=== PATIENT | male | born 1980 | race African-American/Black ===

== ENCOUNTER 2019-06-19 18:18 | Emergency (ER) | payer SELFPAY ==
[2019-06-19] MEDS: NORMAL SALINE 1000 ML 1,000 ML IV PRN ×2 (18:27→19:19)
[2019-06-19] MEDS ORDERED: NALOXONE HCL INJ 2 MG/2 ML DISP.SYRIN ONE ×3 (19:07→19:12)
[2019-06-19 19:08] LABS: ARTERIAL BLOOD BASE EXCESS -15.6 mmol/L; ARTERIAL BLOOD HCO3 18.1 mmol/L (20-24); ARTERIAL BLOOD O2 SATURATION 99.2 % (94-98); ARTERIAL BLOOD PO2 285.5 mmHg (80-100); ARTERIAL BLOOD TOTAL CO2 20.7 mmol/L (23-27)
[2019-06-19 19:09] LABS: ARTERIAL BLOOD FIO2 50%
[2019-06-19 19:12] LABS: ARTERIAL BLOOD PH 6.94 (7.35-7.45)
[2019-06-19 19:13] LABS: ARTERIAL BLOOD PCO2 86.4 mmHg (35-45)
[2019-06-19] MEDS ORDERED: NOREPINEPHRINE BITARTRATE INJ/PF 4 MG/4 ML SDV IV ONE (19:13)
[2019-06-19 19:16] LABS: INTERNATIONAL RATION (INR) 2.37; PROTHROMBIN TIME 26.3 SEC (11.4-15.4)
[2019-06-19 19:17] LABS: HEMATOCRIT 40.3 % (37.9-51.0); HEMOGLOBIN 12.6 g/dL (13.5-17.0); MEAN CORPUSCULAR HEMOGLOBIN 31.2 pg (27.0-33.4); MEAN CORPUSCULAR HGB CONC 31.4 g/dL (32.0-36.0); MEAN CORPUSCULAR VOLUME 99 fl (80-97); RED BLOOD COUNT 4.05 10^6/uL (4.35-5.55); RED CELL DISTRIBUTION WIDTH 14.2 % (11.5-14.0); WHITE BLOOD COUNT 19.7 10^3/uL (4.0-10.5)
[2019-06-19] MEDS ORDERED: DEXTROSE 5%-WATER 250 ML with NOREPINEPHRINE BITARTRATE 4 MG IV PRN ×2 (19:27)
[2019-06-19 19:35] LABS: ALBUMIN 3.5 g/dL (3.5-5.0); ALKALINE PHOSPHATASE 132 U/L (38-126); ANION GAP 19 (5-19); BILIRUBIN,DIRECT 0.3 mg/dL (0.0-0.4); BILIRUBIN,TOTAL 0.6 mg/dL (0.2-1.3); BLOOD UREA NITROGEN 18 mg/dL (7-20); CALCIUM 8.3 mg/dL (8.4-10.2); CARBON DIOXIDE 23 mmol/L (22-30); CHLORIDE 103 mmol/L (98-107); GLUCOSE 111 mg/dL (75-110); POTASSIUM 3.5 mmol/L (3.6-5.0)
[2019-06-19 19:44] LABS: PLATELET COUNT 72 10^3/uL (150-450)
[2019-06-19 19:48] LABS: ABSOLUTE MONOCYTES # (MANUAL) 1.2 10^3/uL (0.1-1.4); BAND NEUTROPHILS % (MANUAL) 10 % (3-5); BASOPHILS % (MANUAL) 0 % (0-2); EOSINOPHILS % (MANUAL) 0 % (0-6); LYMPHOCYTES % (MANUAL) 5 % (13-45); MONOCYTES % (MANUAL) 6 % (3-13); NUCLEATED RED BLOOD CELLS 1 /100 WBC (0); SEGMENTED NEUTROPHILS % (MAN) 79 % (42-78); TOTAL CELLS COUNTED 100
[2019-06-19 19:49] LABS: ANISOCYTOSIS SLIGHT; PLATELET COMMENT DECREASED
--- NOTE | 2019-06-19 19:55 | RADIOLOGY REPORT (SQ) ---
EXAM DESCRIPTION: CHEST SINGLE VIEW COMPLETED DATE/TIME: 06/19/2019 7:30 pm REASON FOR STUDY: ETT placement COMPARISON: None. EXAM PARAMETERS: NUMBER OF VIEWS: One view. TECHNIQUE: Single frontal radiographic view of the chest acquired. RADIATION DOSE: NA LIMITATIONS: None. FINDINGS: LUNGS AND PLEURA: No pneumothorax. Right basilar airspace disease. No pleural effusion. MEDIASTINUM AND HILAR STRUCTURES: No masses. Contour normal. HEART AND VASCULAR STRUCTURES: Heart normal in size. Normal vasculature. BONES: No acute findings. HARDWARE: Endotracheal tube tip overlies the mid trachea approximately 5 cm above the level of the ca yee. Nasogastric catheter tip overlies the body of the stomach. OTHER: No other significant finding. IMPRESSION: Right basilar airspace disease.Endotracheal tube tip overlies the mid trachea approximat mireya 5 cm above the level of the riya. Nasogastric catheter tip overlies the body of the stomach. TECHNICAL DOCUMENTATION: JOB ID: [id number] [id number] 2010 [email or web address]- All Rights Reserved Reading location - IP/workstation name: [email or web address]
[2019-06-19 20:06] LABS: ACETAMINOPHEN < 10 ug/mL (10-30); ALCOHOL < 10 mg/dL (NONE DETECTED); ASPARTATE AMINO TRANSFERASE 3175 U/L (17-59); SALICYLATE < 1.0 mg/dL (2.0-20.0)
[2019-06-19 20:15] LABS: FREE T3 5.53 pg/mL (2.77-5.27); FREE T4 (FREE THYROXINE) 0.88 ng/dL (0.78-2.19)
[2019-06-19] MEDS ORDERED: NALOXONE HCL INJ 2 MG/2 ML DISP.SYRIN IV ONE ×2 (20:17→20:18)
[2019-06-19 20:26] LABS: ARTERIAL BLOOD BASE EXCESS -13.9 mmol/L; ARTERIAL BLOOD H2CO3 1.57 mmol/L (1.05-1.35); ARTERIAL BLOOD HCO3 15.8 mmol/L (20-24); ARTERIAL BLOOD O2 SATURATION 98.6 % (94-98); ARTERIAL BLOOD PCO2 52.3 mmHg (35-45); ARTERIAL BLOOD PO2 172.4 mmHg (80-100); ARTERIAL BLOOD TOTAL CO2 17.4 mmol/L (23-27)
[2019-06-19 20:28] LABS: ARTERIAL BLOOD FIO2 40
[2019-06-19 20:29] LABS: THYROID STIMULATING HORMONE 1.08 uIU/mL (0.47-4.68)
--- NOTE | 2019-06-19 20:47 | RADIOLOGY REPORT (SQ) ---
EXAM DESCRIPTION: CT HEAD WITHOUT IV CONTRAST COMPLETED DATE/TME: 06/19/2019 18:54 CLINICAL HISTORY: 39 years, Male, seizures, unresponsive COMPARISON: None. TECHNIQUE: Noncontrast CT of the head was performed. Coronal and sagittal reformations were created. Images stored on PACS. All CT scanners at this facility use dose modulation, iterative reconstruction, and/or weight based dosing when appropriate to reduce radiation dose to as low as reasonably achievable (ALARA). [facility]: Dose Right [facility]: CareDose [facility]: Dose Right [facility]: Teradose 4D [facility]: [employer] LIMITATIONS: None. FINDINGS: Visualized is hyperdensity interdigitate the sulcal spaces of the bilateral cerebellar hemispheres as well as enveloping the cerebellar vermis and bilateral cerebellar pontine angles. This also appears to undermine the bilateral tentorial leaflets. Likewise, the bilateral cerebellar hemispheres appear diffusely hypodense. There is associated mass effect upon the fourth ventricle with slight descent of the cerebellar tonsils into the foramen magnum where there is crowding of the cerebellar tonsils/posterior aspect of the medulla. In addition, there is focal hypodensity about the bilateral globus pallidi. Cerebral ventricles and sulcal spaces appear normal in size and configuration. Globes and orbits show no acute abnormality. Mild opacity is noted about the right maxillary antrum with additional mild opacity in the ethmoidal air cells. A few scattered foci of gas density are noted about the soft tissues overlying the left temporalis muscle and the left tube draw helper space, presumably iatrogenic. No depressed skull fractures. IMPRESSION: Scattered hyperdensity interdigitate the sulcal spaces of the bilateral cerebellar hemispheres, suspicious for subarachnoid hemorrhage with additional diffuse hypodensity about the bilateral cerebellar hemispheres, raising the possibility of bilateral cerebellar hemispheric infarction. This could be confirmed with MR. Likewise, the cerebellar tonsils appear to descend into the foramen magnum where there is crowding, presumably acute. Additional hypodensity about the bilateral globus pallidus, a finding which is generally nonspecific though could be related to anoxic hypoxic injury or other toxic/metabolic insult. THIS REPORT CONTAINS FINDINGS THAT MAY BE CRITICAL TO PATIENT CARE: The findings were verbally discussed via telephone conference with Dr. FERRO by Dr. Bean on 06/19/2019 7:41 PM PRINCIPAL STRATEGIST .The results were acknowledged and understood. TECHNICAL DOCUMENTATION: Quality ID # [id number]: Final reports with documentation of one or more dose reduction techniques (e.g., Automated exposure control, adjustment of the mA and/or kV according to patient size, use of iterative reconstruction technique) copyright 2011 [employer]- All Rights Reserved
[2019-06-19] MEDS ORDERED: LEVETIRACETAM 1000 MG/NACL-ISO 1,000 MG/100 ML RTUPB IV ONE (20:49)
[2019-06-19] MEDS ORDERED: DEXTROSE 10%-WATER 1,000 ML IV ONE (20:59)
[2019-06-19 21:01] LABS: VENOUS BLOOD BASE EXCESS -12.3 mmol/L; VENOUS BLOOD HCO3 19.9 mmol/L (20-32)
[2019-06-19 21:03] LABS: VENOUS BLOOD PH 7.03 (7.30-7.42)
[2019-06-19 21:04] LABS: VENOUS BLOOD PCO2 77.1 mmHg (35-63)
[2019-06-19] MEDS ORDERED: MANNITOL 25% INJ 12.5 GM/50 ML VIAL IV ONE (21:27)
[2019-06-19 21:42] LABS: APPEARANCE,URINE TURBID; BILIRUBIN,URINE NEGATIVE (NEGATIVE); COLOR,URINE YELLOW; GLUCOSE, URINE NEGATIVE (NEGATIVE); KETONES,URINE NEGATIVE (NEGATIVE); PROTEIN,URINE 30 mg/dL (NEGATIVE); URINE SPECIFIC GRAVITY 1.028; UROBILINOGEN,URINE NEGATIVE mg/dL (<2.0)
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
[2019-06-19 22:16] LABS: URINE BARBITURATES SCREEN NEGATIVE; URINE COCAINE SCREEN NEGATIVE; URINE METHADONE SCREEN NEGATIVE; URINE PHENCYCLIDINE SCREEN NEGATIVE
[2019-06-19 22:16] LABS: ARTERIAL BLOOD BASE EXCESS -12.2 mmol/L; ARTERIAL BLOOD HCO3 16.3 mmol/L (20-24); ARTERIAL BLOOD O2 SATURATION 95.6 % (94-98); ARTERIAL BLOOD PCO2 46.6 mmHg (35-45); ARTERIAL BLOOD PO2 98.2 mmHg (80-100); ARTERIAL BLOOD TOTAL CO2 17.7 mmol/L (23-27)
[2019-06-19 22:33] LABS: ARTERIAL BLOOD FIO2 40%; ARTERIAL BLOOD PH 7.16 (7.35-7.45)
[2019-06-19 23:29] LABS: URINE BENZODIAZEPINES SCREEN UNCONFIRMED POSITIVE
[2019-06-19 23:30] LABS: URINE MARIJUANA (THC) SCREEN UNCONFIRMED POSITIVE
--- NOTE | 2019-06-19 23:31 | RADIOLOGY REPORT (SQ) ---
EXAM DESCRIPTION: CT NECK ANGIOGRAPHY WITHOUT THEN WITH IV CONTRAST, CT HEAD ANGIOGRAPHY WITHOUT THEN WITH IV CONTRAST COMPLETED DATE/TME: 06/19/2019 21:20 CLINICAL HISTORY: 39 years Male, subarachnoid hemmorhage Comparison: CT, head, same day. Technique: IV contrast. Coronal and sagittal reformat. No 3d reconstruction. This exam was performed according to our departmental dose-optimization program, which includes automated exposure control, adjustment of the mA and/or kV according to patient size and/or use of iterative reconstruction technique. [facility]: Dose Right [facility]: CareDose [facility]: Dose Right [facility]: Teradose 4D [facility]: [employer] LIMITATIONS: No MIPS. Findings: CTA, head: No large vessel occlusion. Intact [place]. No aneurysm. No vasculitides. CTA, neck: No internal carotid arterial stenosis/occlusion based on NASCET (or similar) criteria. Intact carotid and vertebral arterial system. Other: Moderate consolidation of the right upper lobe and small nodular lesions of the right upper lung field partially imaged. Abnormal CT of the head reported separately. Adequate appearing endotracheal tube. Adequate appearing enteric tube partially obscured. Anterior C5-C7 cervical hardware fusion at C5-C6 intervertebral disc replacement. 1.1 cm left mandibular molar periapical lucency/disease. Impression: 1. No acute CTA findings. Limitation. 2. Moderate consolidation of the right upper lobe and small nodular lesions of the right upper lung field partially imaged. Differential etiologies include infectious, inflammatory, and neoplastic processes. Recommend CR/CT surveillance including at 7-12 weeks following initiation of any clinically warranted therapy. 3. Abnormal CT of the head reported separately.
[2019-06-19 23:36] VITALS: BP 120/85
--- NOTE | 2019-06-20 07:35 | EKG REPORT ---
SEVERITY:- ABNORMAL ECG - SINUS RHYTHM LEFT BUNDLE BRANCH BLOCK : Confirmed by: Jaswant Lopez MD 20-Jun-2019 07:34:39
== END 2019-06-19 23:10 | disposition short-term general hospital (02) ==
LOC: ER 18:18 → EDBD 18:18 → ER 23:10
DX: I60.9 Nontraumatic subarachnoid hemorrhage, unspecified (principal); I21.4 Non-ST elevation (NSTEMI) myocardial infarction; R40.4 Transient alteration of awareness; E16.2 Hypoglycemia, unspecified; K72.00 Acute and subacute hepatic failure without coma; E87.4 Mixed disorder of acid-base balance; F17.200 Nicotine dependence, unspecified, uncomplicated
CPT/HCPCS: 36415; 87040; 84439; 82962; 80307 ×4; 82803 ×2; 84443; 85025; 85610; 80053; 81001; 84484; 84481; 83605; 71045; 70450; 70496; 70498; 94660; 36600; 31500; J2150; J3490; J2310; J7060; J7030; J1953; 51702; 87086; 93005; 93010; 96361; 96365; 96366; 96368; 96375; 99291; 99292